=== PATIENT | male | born 1995 | race Two or more races ===

== ENCOUNTER 2022-01-07 13:29 | Inpatient (IN) | payer MEDICAID ==
[~2022-01-07] VITALS: Ht 185.4 cm; Wt 85.3 kg
--- NOTE | 2022-01-07 13:40 | NUR ---
TO ER BED 11, BIBS C/O ABDOMINAL PAIN SINCE LAST NIGHT P/S 09/18, AAOX3, BREATHING EVEN AND NON LABORED, CONNECTED TO MONITOR, AWAITING MD SANCHEZ
--- NOTE | 2022-01-07 14:00 | NUR ---
PATIENT BROUGHT IN FROM HOME BY FAMILY FOR ACUTE ABDOMINAL PAIN
--- NOTE | 2022-01-07 14:20 | NUR ---
BLOOD SAMPLES COLLECTED AND SENT TO LAB
[2022-01-07] MEDS ORDERED: IV NS 0.9% 1,000 ML BAG IV ONE (14:30)
[2022-01-07] MEDS ORDERED: MORPHINE SULFATE INJ 2 MG/ML DISP.SYRIN IV ONE (14:30)
--- NOTE | 2022-01-07 14:30 | NUR ---
R AC 20 G SL INSERTED
[2022-01-07] MEDS ORDERED: MORPHINE SULFATE INJ 2 MG/ML DISP.SYRIN ONE (14:43)
[2022-01-07] MEDS ORDERED: CT SWABBABLE VALVE TRANS SET 1 EA INFUS.SET MC ONE (14:49)
[2022-01-07] MEDS ORDERED: IOHEXOL-300 100 ML VIAL IV ONE (14:49)
[2022-01-07] MEDS ORDERED: IV NS 0.9% 250 ML IV ONE (14:49)
[2022-01-07 15:01] LABS: BASOPHILS % (AUTO) 0.2 % (0.0-2.0); EOSINOPHILS % (AUTO) 1.1 % (0.0-6.0); HEMATOCRIT 43 % (39-51); HEMOGLOBIN 14.4 g/dL (13.5-17.5); LYMPHOCYTES # (AUTO) 2.2 K/uL (0.8-4.8); LYMPHOCYTES % (AUTO) 16.6 % (20.0-44.0); MEAN CORPUSCULAR HGB CONC 33 g/dl (31.0-36.0); MEAN CORPUSCULAR VOLUME 93 fL (80-96); MONOCYTES # (AUTO) 0.8 K/uL (0.1-1.30); MONOCYTES % (AUTO) 6.4 % (2.0-12.0); NEUTROPHILS # (AUTO) 9.9 K/uL (1.8-8.9); NEUTROPHILS % (AUTO) 75.7 % (43.0-81.0); PLATELET COUNT (AUTO) 207 K/uL (150-450); RED BLOOD CELL COUNT(AUTO) 4.68 MIL/uL (4.5-6.0); WHITE BLOOD COUNT (AUTO) 13.1 K/uL (4.3-11.0)
[2022-01-07 15:18] LABS: CALCIUM, SERUM 9.4 mg/dL (8.5-10.1); POTASSIUM 3.9 mmol/L (3.5-5.1)
[2022-01-07 15:26] LABS: ALBUMIN 4.4 g/dL (3.4-5.0); BILIRUBIN,DIRECT 0.2 mg/dL (0.0-0.2); BILIRUBIN,TOTAL 1.1 mg/dL (0.2-1.0); TOTAL PROTEIN, SERUM 8.1 g/dL (6.4-8.2)
--- NOTE | 2022-01-07 15:39 | NUR ---
URINE COLLECTED AND SENT TO LAB
--- NOTE | 2022-01-07 15:44 | NUR ---
COVID SWAB COLLECTED AND PLACED IN DROP OFF BOX
[2022-01-07] MEDS ORDERED: CEFOXITIN 1 G VIAL ONE (15:49)
--- NOTE | 2022-01-07 15:55 | NUR ---
DR. SHAHID PAGED.
[2022-01-07 15:57] LABS: BILIRUBIN,URINE NEGATIVE (NEGATIVE); COLOR,URINE YELLOW (YELLOW); LEUKOCYTE ESTERASE ,URINE NEGATIVE (NEGATIVE); NITRITE, URINE NEGATIVE (NEGATIVE); PH,URINE 6.5 (5.0-8.0); PROTEIN,URINE NEGATIVE (NEGATIVE); UGLUCOSE NEGATIVE (NEGATIVE)
[2022-01-07] MEDS ORDERED: CEFOXITIN 1 G VIAL IM ONE (16:00)
--- NOTE | 2022-01-07 16:38 | NUR ---
MOVE PACKET SUBMITTED
[2022-01-07 16:39] LABS: BACTERIA,URINE None seen /HPF (None Seen); SQUAMOUS EPITHELIAL CELL,UR 0-2 /HPF (None Seen); WBC,URINE 0-2 /HPF (0-3)
[2022-01-07] MEDS ORDERED: ONDANSETRON HCL/PF 4 MG/2 ML VIAL IVP PRN (17:30)
[2022-01-07] MEDS ORDERED: Z GUARD REMEDY 4 OZ OINT TP PRN (17:30)
[2022-01-07] MEDS ORDERED: MORPHINE SULFATE INJ 2 MG/ML DISP.SYRIN IV PRN (17:30)
[2022-01-07] MEDS ORDERED: IV D5/0.45 NACL 1,000 ML IV PRN (17:30)
[2022-01-07] MEDS ORDERED: ACETAMINOPHEN 325 MG TABLET PO PRN (17:30)
--- NOTE | 2022-01-07 18:27 | NUR ---
GOT BED 313-1
[2022-01-07] MEDS: PIPERACILLIN /TAZOBACTAM 3.375 G in IV D5W 50 ML IV SCH (18:36)
--- NOTE | 2022-01-07 18:48 | NUR ---
REPORT GIVEN TO FERN SETHI FOR DANNY
--- NOTE | 2022-01-07 19:30 | NUR ---
RN RECEIVING NOTE PATIENT ARRIVED TO UNIT AT 1930. PATIENT WAS WABLE TO AMBULATE TO HIS BED. A/OX4. NO S/S OF DISTRESS, BREATHING WITHOUT DIFFICULTY ON ROOM AIR. RAC #20 INTACT AND PATENT. SAFETY MEASURES IN PLACE: BED LOCKED AND AT LOWEST POSITION, RAILS UP X2, CALL PATRICIA WITHIN REACH. PATIENT HAD SISTER AT BEDSIDE. ALL QUESTIONS AND CONCERNS ADDRESSED AND ANSWERED. PATIENT WAS ORIENTED TO THE UNIT. PATIENT GIVEN CALL PATRICIA AND INSTRUCTED ON ITS USE. PATIENT'S BELONGINGS ACCOUNTED FOR, LOGGED INTO SHEET, AND PLACED IN CHART. PATIENT STABLE; WILL CONTINUE TO MONITOR PATIENT.
[2022-01-07 21:17] VITALS: BP 122/73
[2022-01-08] MEDS: PIPERACILLIN /TAZOBACTAM 3.375 G in IV D5W 50 ML IV SCH ×3 (00:11→12:30)
--- NOTE | 2022-01-08 05:08 | NUR ---
RN NOTE CONTACTED PATIENT'S SISTER, ARIANNA ([phone]), PER PATIENT, AND NOTIFIED HER OF HIS SURGERY SCHEDULED FOR 0800. PATIENT STABLE; WILL CONTINUE TO MONITOR PATIENT.
[2022-01-08 06:19] LABS: BASOPHILS % (AUTO) 0.1 % (0.0-2.0); EOSINOPHILS % (AUTO) 1.5 % (0.0-6.0); HEMATOCRIT 41 % (39-51); HEMOGLOBIN 13.7 g/dL (13.5-17.5); LYMPHOCYTES # (AUTO) 1.8 K/uL (0.8-4.8); LYMPHOCYTES % (AUTO) 15.5 % (20.0-44.0); MEAN CORPUSCULAR HGB CONC 33 g/dl (31.0-36.0); MEAN CORPUSCULAR VOLUME 93 fL (80-96); MONOCYTES # (AUTO) 0.8 K/uL (0.1-1.30); MONOCYTES % (AUTO) 6.9 % (2.0-12.0); NEUTROPHILS # (AUTO) 8.7 K/uL (1.8-8.9); PLATELET COUNT (AUTO) 196 K/uL (150-450); RED BLOOD CELL COUNT(AUTO) 4.44 MIL/uL (4.5-6.0); WHITE BLOOD COUNT (AUTO) 11.4 K/uL (4.3-11.0)
[2022-01-08 06:52] LABS: CALCIUM, SERUM 9.2 mg/dL (8.5-10.1); CREATININE 1.1 mg/dL (0.6-1.3); MAGNESIUM 2.2 mg/dL (1.8-2.4); POTASSIUM 4.6 mmol/L (3.5-5.1)
--- NOTE | 2022-01-08 06:52 | NUR ---
RN CLOSING NOTE PATIENT ASLEEP IN BED. A/OX4. NO S/S OF DISTRESS, BREATHING WITHOUT DIFFICULTY ON ROOM AIR. RAC #20 INTACT AND PATENT W/ D5-1/2NS @75ML/HR. SAFETY MEASURES IN PLACE: BED LOCKED AND AT LOWEST POSITION, RAILS UP X2, CALL PATRICIA WITHIN REACH. WILL ENDORSE TO NEXT SHIFT FOR DANNY.
--- NOTE | 2022-01-08 07:23 | NUR ---
MS RN OPENING NOTE RECEIVED PT ASLEEP IN BED, EASILY AROUSED. PT A/OX4, ARMENIA SPEAKING. PT ABLE TO MAKE NEEDS KNOWN. ON ROOM AIR, TOLERATING WELL. NO SOB NOTED. NOT IN ANY SIGN OF RESPIRATORY DISTRESS. IV ACCESS IN RAC G#20 INTACT AND PATENT. PT AWAITING FOR APPENDECTOMY SURGERY SCHEDULED AT 0800. SAFETY MEASURES IN PLACE: BED IN LOWEST AND LOCKED POSITION, SIDE RAILS UPX2, AND CALL LIGHT WITHIN EASY REACH. WILL CONTINUE TO MONITOR PT.
[2022-01-08] MEDS ORDERED: ANESTHESIA TRAY IN PYXIS 1 EA TRAY MC ONE (07:31)
[2022-01-08] MEDS ORDERED: BUPIVACAINE MPF 0.5% W/EPI INJ 30 ML VIAL ONE (07:31)
--- NOTE | 2022-01-08 07:40 | NUR ---
RN NOTE BROUGHT PT TO THE OR VIA BED WITH THE ASSIST OF YADIRA, FOR A LAPAROSCOPIC APPENDECTOMY SURGERY BY DR. SHAHID. PT WAS RECEIVED BY BONG OR NURSE.
[2022-01-08] MEDS ORDERED: HYDROMORPHONE INJ 2 MG/ML DISP.SYRIN ONE (07:50)
[2022-01-08] MEDS ORDERED: GLYCOPYRROLATE 0.2 MG/ML VIAL ONE (07:50)
[2022-01-08 07:51] LABS: PHOSPHORUS 4.3 mg/dL (2.5-4.9)
[2022-01-08] MEDS ORDERED: MIDAZOLAM HCL 2 MG/2ML VIAL ONE (07:51)
[2022-01-08] MEDS ORDERED: ROCURONIUM BROMIDE 50 MG/5 ML ONE (07:51)
[2022-01-08 08:36] VITALS: BP 108/58
[2022-01-08] MEDS ORDERED: PANTOPRAZOLE 40 MG VIAL IV SCH (09:00)
--- NOTE | 2022-01-08 09:00 | NUR ---
RN NOTE PROTONIX MEDICATION SCHEDULED AT 0900 NOT ADMINISTERED. PT IS STILL AT OR FOR SURGERY.
--- NOTE | 2022-01-08 09:55 | NUR ---
RN NOTE PT BACK FROM OR SURGERY VIA BED BROUGHT BY ANKIT, OR NURSE. PT ON S/P LAPAROSCOPIC APPENDECTOMY, WITH 3 SMALL DRESSING IN THE ABDOMEN IN PLACE, INTACT, WITH NO ACTIVE BLEEDING NOTED. PT DENIES PAIN OR DISCOMFORT AT THIS TIME. PER ANKIT, MAY RESUME IN REGULAR DIET, OUT OF BED AD KEISHA ORDERED AND CLEARED FOR DISCHARGED TODAY WHEN STABLE. VITAL SIGNS: BP 124/68, P 69, TEMP 97.9, R 17, SPO2 95 % IN ROOM AIR. WILL CONTINUE TO MONITOR PT.
[2022-01-08] MEDS ORDERED: HYDROCODONE/APAP 5/325MG TABLET PO PRN (10:00)
--- NOTE | 2022-01-08 10:10 | NUR ---
RN NOTE REASSESSED PT AFTER 15 MINS, ON S/P LAPAROSCOPIC APPENDECTOMY, WITH 3 SMALL DRESSING IN THE ABDOMEN IN PLACE, INTACT, WITH NO ACTIVE BLEEDING NOTED. PT DENIES PAIN OR DISCOMFORT AT THIS TIME. VITAL SIGNS: BP 117/65, P 69, TEMP 98.0, R 16, SPO2 96 % IN ROOM AIR. WILL CONTINUE TO MONITOR PT.
--- NOTE | 2022-01-08 10:40 | NUR ---
RN NOTE REASSESSED PT AFTER 30 MINUTES, ON S/P LAPAROSCOPIC APPENDECTOMY, WITH 3 SMALL DRESSING IN THE ABDOMEN IN PLACE, INTACT, WITH NO ACTIVE BLEEDING NOTED. PT DENIES PAIN OR DISCOMFORT AT THIS TIME. VITAL SIGNS: BP 111/68, P 75, TEMP 98.1, R 16, SPO2 96 % IN ROOM AIR. WILL CONTINUE TO MONITOR PT.
--- NOTE | 2022-01-08 11:40 | NUR ---
RN NOTE REASSESSED PT AFTER AN HOUR, ON S/P LAPAROSCOPIC APPENDECTOMY, WITH 3 SMALL DRESSING IN THE ABDOMEN IN PLACE, INTACT, WITH NO ACTIVE BLEEDING NOTED. PT DENIES PAIN OR DISCOMFORT AT THIS TIME. VITAL SIGNS: BP 117/61, P 77, TEMP 97.7, R 17, SPO2 96 % IN ROOM AIR. WILL CONTINUE TO MONITOR PT.
--- NOTE | 2022-01-08 12:40 | NUR ---
RN NOTE REASSESSED PT AFTER ANOTHER HOUR, ON S/P LAPAROSCOPIC APPENDECTOMY, WITH 3 SMALL DRESSING IN THE ABDOMEN IN PLACE, INTACT, WITH NO ACTIVE BLEEDING NOTED. PT DENIES PAIN OR DISCOMFORT AT THIS TIME. VITAL SIGNS: BP 110/51, P 80, TEMP 97.8, R 18, SPO2 97 % IN ROOM AIR. WILL CONTINUE TO MONITOR PT.
[2022-01-08] MEDS ORDERED: ONDA4TAB11 PO (16:08)
[2022-01-08 16:47] VITALS: BP 109/60
--- NOTE | 2022-01-08 18:15 | NUR ---
CIRCUIT COURT CLERK NOTE PT DISCHARGED TO HOME IN STABLE CONDITION. PT A/O X4, WELSH SPEAKING. PALLETIZER WAS AVAILABLE TO TRANSLATE. PT ABLE TO MAKE NEEDS KNOWN. ON RA, TOLERATING WELL WITH SPO2 AT 98%. NO SOB NOTED. NOT IN ANY SIGN OF RESPIRATORY DISTRESS. VITAL SIGNS TAKEN, STABLE, AND RECORDED. PT WAS ABLE TO URINATE AND ABLE TO TOLERATE HIS MEALS. ALL BELONGINGS ACCOUNTED FOR. DISCHARGED INSTRUCTIONS AND HEALTH TEACHINGS GIVEN TO PT ESPECIALLY IN REGARDS TO HIS [place] MEDICATION PRESCRIPTION TO TAKE THE MEDICATION ORDERED, TO NOT TAKE TYLENOL, DRIVE, AND/OR DRINK ALCOHOL WHILE TAKING THIS MEDICATION. PT IS AWARE AND VERBALIZED UNDERSTANDING. IV ACCESS IN RAC G #20 REMOVED WITH NO ACTIVE BLEEDING NOTED. DRY PRESSURE DRESSING APPLIED TO SITE. NAME BAND REMOVED. PT LEFT THE UNIT AT 1810 VIA WHEELCHAIR, ACCOMPANIED BY THE PHLEBOTOMY TECHNICIAN, FELICIA Alexander. PT WAS PICKED UP BY SISTER VIA PRIVATE CAR. MD AND CHARGED NURSE AWARE OF DISCHARGED. Addendum: 01/10/22 at 0741 by SOFIA FULLER RN ADDENDUM: ON S/P LAPAROSCOPIC APPENDECTOMY, WITH 3 SMALL DRESSING IN THE ABDOMEN IN PLACE, INTACT, WITH NO ACTIVE BLEEDING NOTED. PT DENIES PAIN OR DISCOMFORT AT THIS TIME.
== END 2022-01-08 18:25 | disposition home or self-care (01) | DRG 234 ==
LOC: ER 13:31 → MED 18:30
PROVIDERS: ADMIT Nurse Practitioner Family; ATTEND Nurse Practitioner Family
PROC: 0DTJ4ZZ Resection of Appendix, Percutaneous Endoscopic Approach (ICD-10-PCS; principal; 2022-01-08)
DX: K35.30 Acute appendicitis with localized peritonitis, without perforation or gangrene (principal); R17 Unspecified jaundice; D72.829 Elevated white blood cell count, unspecified; Z20.822 Contact with and (suspected) exposure to COVID-19
CPT/HCPCS: 36415; 80048-TC; 80076-TC; 81001; 83690-TC; 83735-TC; 84100-TC; 85025-TC; 85730-TC; 86850-TC; 87086-TC; C9803; G0378; J0330; J0694; J1100; J1170; J1885; J2250; J2270; J2405; J2543; J2704; J3490; J7030; J7040; J7050; J7060; Q9967